=== PATIENT | male | born 1960 | race Caucasian/White ===

== ENCOUNTER 2024-07-01 14:29 | Inpatient (IN) | payer BC ==
[2024-07-01] MEDS: Iopamidol 612 MG/ML 100 ML Bottle IVPUSH ONE (14:43)
[2024-07-01 15:06] LABS: BASOPHILS PERCENT AUTO 0.2 % (0.0-1.0); EOSINOPHILS PERCENT AUTO 0.3 % (1.0-3.0); HEMATOCRIT 46.1 % (40.0-54.0); HEMOGLOBIN 15.7 g/dL (14.0-18.0); LYMPHOCYTES PERCENT AUTO 19.3 % (20.5-50.1); MEAN CORPUSCULAR HEMOGLOBIN 31.2 pg (27.0-34.0); MEAN CORPUSCULAR HGB CONC 34.1 g/dL (33.0-35.0); MEAN CORPUSCULAR VOLUME 91.5 fL (80-100); NEUTROPHILS PERCENT AUTO 70.2 % (42.2-75.2); PLATELET COUNT,PLT 283 10^3/uL (150-450); RED BLOOD CELL COUNT 5.04 10^6/uL (4.6-6.2); WHITE BLOOD CELL COUNT,WBC 12.2 10^3/uL (5.0-10.0)
[2024-07-01 15:13] LABS: INR 1.1 (0.9-1.2); PROTHROMBIN TIME 10.9 SEC (9.0-12.0)
[2024-07-01 15:14] LABS: MAGNESIUM 1.1 mg/dL (1.8-2.4)
[2024-07-01 15:21] LABS: LACTIC ACID 3.3 mmol/L (0.4-2.0)
[2024-07-01 15:26] LABS: A/G RATIO 1.2; ALBUMIN 4.5 g/dL (3.4-5.0); BILIRUBIN TOTAL 1.3 mg/dL (0.2-1.0); BUN/CREATININE RATIO 13.6 (No establ ref range); CALCIUM 10.9 mg/dL (8.5-10.1); CREATININE 1.77 mg/dL (0.70-1.30); EST CRCL DRUG DOSING (CG) 41.86 mL/min; PROTEIN TOTAL,TP 8.1 g/dL (6.4-8.2)
[2024-07-01] MEDS: Ciprofloxacin in D5W 400 MG in Premix Bag 1 BAG IV ONE (15:27)
[2024-07-01] MEDS: Sodium Chloride 0.9% 1,000 ML IV ONE (15:27)
[2024-07-01] MEDS: Sodium Chloride 0.9% 2,000 ML IV ONE (16:01)
[2024-07-01] MEDS: Magnesium Sulfate/Water Premix 4 GM in Premix Bag 1 BAG IV ONE (16:02)
[2024-07-01] MEDS: metroNIDAZOLE/Normal Saline 500 MG in Premix Bag 1 BAG IV ONE (16:36)
[2024-07-01] MEDS ORDERED: Ondansetron 4 MG/2 ML SDV IVPUSH PRN (18:14)
[2024-07-01] MEDS ORDERED: HYDROmorphone 1 MG/ML Syringe IVPUSH PRN (18:17)
[2024-07-01] MEDS: Piperacillin/Tazobactam 4.5 GM in Sodium Chloride 0.9% 100 ML IV ONE (18:38)
[2024-07-01] MEDS ORDERED: Sodium Chloride 0.9% 500 ML IV SCH ×2 (18:45→21:30)
[2024-07-01] MEDS: Sodium Chloride 0.9% 1,000 ML IV SCH (18:45)
[2024-07-01 20:33] LABS: APPEARANCE,URINE CLEAR (CLEAR); BILIRUBIN,URINE NEGATIVE (NEGATIVE); COLOR,URINE LIGHT YELLOW (YELLOW); GLUCOSE,URINE 500 (NEGATIVE); KETONES,URINE NEGATIVE (NEGATIVE); LEUKOCYTE ESTERASE,URINE NEGATIVE (NEGATIVE); NITRITE,URINE NEGATIVE (NEGATIVE); OCCULT BLOOD,URINE NEGATIVE (NEGATIVE); PH,URINE 5.5 (5.0-9.0); PROTEIN,URINE NEGATIVE (NEGATIVE); UROBILINOGEN,URINE 0.2 mg/dL (0.2-1.0)
[2024-07-01] MEDS: Heparin Sodium 5,000 Units/ML Vial SUBCUT SCH (21:14)
[2024-07-02] MEDS: Piperacillin/Tazobactam 4.5 GM in Sodium Chloride 0.9% 100 ML IV SCH (00:05)
[2024-07-02] MEDS: oxyCODONE 5 MG Tab PO PRN (00:11)
[2024-07-02 06:03] LABS: BASOPHILS PERCENT AUTO 0.2 % (0.0-1.0); HEMATOCRIT 37.4 % (40.0-54.0); HEMOGLOBIN 12.4 g/dL (14.0-18.0); LYMPHOCYTES PERCENT AUTO 30.4 % (20.5-50.1); MEAN CORPUSCULAR HEMOGLOBIN 30.8 pg (27.0-34.0); MEAN CORPUSCULAR HGB CONC 33.2 g/dL (33.0-35.0); MONOCYTES PERCENT AUTO 11.2 % (2-8); NEUTROPHILS PERCENT AUTO 57.2 % (42.2-75.2); PLATELET COUNT,PLT 206 10^3/uL (150-450); RED BLOOD CELL COUNT 4.02 10^6/uL (4.6-6.2); WHITE BLOOD CELL COUNT,WBC 6.1 10^3/uL (5.0-10.0)
[2024-07-02 06:18] LABS: ANION GAP 10.4 mEq/L (7-13); CALCIUM 8.9 mg/dL (8.5-10.1); CREATININE 1.43 mg/dL (0.70-1.30); EST CRCL DRUG DOSING (CG) 51.82 mL/min; POTASSIUM,K 4.4 mmol/L (3.5-5.1)
[2024-07-02] MEDS: Pantoprazole 40 MG Tab.CR PO SCH (13:26)
[2024-07-02] MEDS: metFORMIN 500 MG Tab PO SCH (17:11)
[2024-07-02] MEDS: Insulin Lispro 100 Units/ML 3 ML Vial SUBCUT SCH (17:12)
[2024-07-02] MEDS ORDERED: metFORMIN 500 MG Tab PO SCH (21:00)
[2024-07-02] MEDS: Gabapentin 400 MG Cap PO SCH (21:29)
[2024-07-02] MEDS: atorvaSTATin 20 MG Tab PO SCH (21:29)
[2024-07-02] MEDS: Amitriptyline 25 MG Tab PO PRN (23:08)
[2024-07-03] MEDS: Levothyroxine 100 MCG Tab PO SCH (05:43)
[2024-07-03] MEDS: Levothyroxine 75 MCG Tab PO SCH (05:44)
[2024-07-03] MEDS: Hydrochlorothiazide 25 MG Tab PO SCH (08:19)
[2024-07-03] MEDS: DULoxetine 30 MG Cap PO SCH (08:19)
[2024-07-03] MEDS: Lisinopril 20 MG Tab PO SCH (08:20)
[2024-07-03] MEDS ORDERED: Acetaminophen 325 MG Tab PO PRN (10:00)
[2024-07-03] MEDS: Insulin Lispro 100 Units/ML 3 ML Vial SUBCUT SCH (17:27)
[2024-07-04 06:28] LABS: BASOPHILS PERCENT AUTO 0.4 % (0.0-1.0); EOSINOPHILS PERCENT AUTO 1.9 % (1.0-3.0); HEMATOCRIT 37.8 % (40.0-54.0); HEMOGLOBIN 12.6 g/dL (14.0-18.0); LYMPHOCYTES PERCENT AUTO 39.4 % (20.5-50.1); MEAN CORPUSCULAR HGB CONC 33.3 g/dL (33.0-35.0); MEAN CORPUSCULAR VOLUME 93.1 fL (80-100); MONOCYTES PERCENT AUTO 9.1 % (2-8); NEUTROPHILS PERCENT AUTO 49.2 % (42.2-75.2); PLATELET COUNT,PLT 201 10^3/uL (150-450); RED BLOOD CELL COUNT 4.06 10^6/uL (4.6-6.2); WHITE BLOOD CELL COUNT,WBC 4.8 10^3/uL (5.0-10.0)
[2024-07-05] MEDS: Amoxicillin/Clavulanate K 875-125 MG Tab ONE (15:18)
[2024-07-05] MEDS: oxyCODONE 5 MG Tab ONE (15:18)
== END 2024-07-05 14:00 | disposition home or self-care (01) | DRG 720 ==
LOC: DL.ED 14:29 → UNDOADMIN 16:24 → DL.MS 16:24
PROVIDERS: ADMIT Internal Medicine; ATTEND Internal Medicine
DX: A41.9 Sepsis, unspecified organism (principal); N17.9 Acute kidney failure, unspecified; K57.92 Diverticulitis of intestine, part unspecified, without perforation or abscess without bleeding; E11.9 Type 2 diabetes mellitus without complications; D72.829 Elevated white blood cell count, unspecified; H54.7 Unspecified visual loss; E86.0 Dehydration; E83.42 Hypomagnesemia; Z79.4 Long term (current) use of insulin; Z85.46 Personal history of malignant neoplasm of prostate; Z79.84 Long term (current) use of oral hypoglycemic drugs; Z79.899 Other long term (current) drug therapy
CPT/HCPCS: 36415; 74177; 80048; 80053; 81003; 82947; 83605; 83690; 83735; 85025; 85610; 87040; 96365; 96368; 99222; 99231; 99232; 99239; 99285-25; A9270-GY; J0744; J1644; J1815-GY; J1836; J2543; J3475; J3490; J7030; Q9967